=== PATIENT | female | born 1995 | race Caucasian/White ===

== ENCOUNTER 2017-03-24 09:05 | Emergency (ER) | payer OTHER ==
[~2017-03-24] VITALS: Ht 172.7 cm; Wt 63.5 kg
[2017-03-24] MEDS ORDERED: CYCL5TAB PO (10:29)
[2017-03-24] MEDS ORDERED: PRD20T PO (10:29)
--- NOTE | 2017-03-24 10:29 | ED Back Pain ---
General Chief Complaint: Back Problems Stated Complaint: BACK PAIN Nursing Triage Note: TO ED PER W/C REPORTS WAS SNEEZING WHEN LOW BACK PAIN STARTED, DID NOT TAKE ANY OTC PAIN MEDS BEFORE COMING TO ED. Nursing Sepsis Screen: No Definite Risk Source of Information: Patient Exam Limitations: No Limitations History of Present Illness Time Seen by Provider: 10:27 Initial Comments To ER with reports of left low back pain that radiates down the left leg. This began when sneezing this morning. Has a history of sciatica. No loss of bowel or bladder control, no saddle anesthesia. No fevers or chills. Location: Lumbar Spine Timing/Duration: 1-2 Days Severity: Moderate Method of Injury: Other (sneezing) Associated Symptoms: lower back pain Allergies and Home Medications Allergies Coded Allergies: No Known Drug Allergies (Unverified , 03/24/17) Home Medications No Active Prescriptions or Reported Meds Constitutional: see HPI, No chills, No fever EENTM: see HPI Respiratory: no symptoms reported Cardiovascular: no symptoms reported Genitourinary: no symptoms reported Musculoskeletal: see HPI, back pain Skin: no symptoms reported Psychiatric/Neurological: No Symptoms Reported Past Qznpywp-Dyidpx-Tyiyme Hx Patient Social History Alcohol Use: Denies Use Recreational Drug Use: No Smoking Status: Never a Smoker Recent Foreign Travel: No Contact w/Someone Who Travel: No Recent Infectious Disease Expo: No Recent Hopitalizations: No Seasonal Allergies Seasonal Allergies: No Surgeries HX Surgeries: No Respiratory Hx Respiratory Disorders: No Cardiovascular Hx Cardiac Disorders: No Neurological Hx Neurological Disorders: No Genitourinary Hx Genitourinary Disorders: No Gastrointestinal Hx Gastrointestinal Disorders: No Musculoskeletal Hx Musculoskeletal Disorders: No Endocrine Hx Endocrine Disorders: No HEENT HX ENT Disorders: No Cancer Hx Cancer: No Psychosocial Hx Psychiatric Problems: No Physical Exam Vital Signs Vital Sign - Last 12Hours 03/24/17 09:11 Temp 98.0 Pulse 69 Resp 18 B/P (MAP) 114/82 Pulse Ox 100 O2 Delivery Room Air Capillary Refill : Less Than 3 Seconds General Appearance: No Apparent Distress, WD/WN HEENT: PERRL/EOMI, TMs Normal Neck: Full Range of Motion, Normal Inspection Respiratory: No Accessory Muscle Use, No Respiratory Distress Gastrointestinal: Non Tender, Soft Extremity: Normal Capillary Refill, Normal Inspection Neurologic/Psychiatric: Alert, Oriented x3, No Motor/Sensory Deficits, Normal Mood/Affect Skin: Normal Color, Warm/Dry Progress/Results/Core Measures Results/Orders Vital Signs/I&O Vital Sign - Last 12Hours 03/24/17 09:11 Temp 98.0 Pulse 69 Resp 18 B/P (MAP) 114/82 Pulse Ox 100 O2 Delivery Room Air Blood Pressure Mean: 93 Departure Impression Impression: Primary Impression: Lumbar radiculopathy Disposition: HOME, SELF-CARE Condition: Stable Departure-Patient Inst. Decision time for Depature: 10:28 Referrals: [facility] (PCP/Family) Primary Care Physician Patient Instructions: Radiculopathy (DC) Add. Discharge Instructions: 1. Return to ER for any concerns 2. [facility] 3. All discharge instructions reviewed with patient and/or family. Voiced understanding. Scripts Cyclobenzaprine HCl (Cyclobenzaprine HCl) 5 Mg Tablet 5 MG PO TID Y for PAIN-MILD TO MODERATE, #20 TAB Prov: PRASHANT BULLOCK APRN 03/24/17 Prednisone (Prednisone) 20 Mg Tab 40 MG PO DAILY, #6 TAB Prov: PRASHANT BULLOCK APRN 03/24/17 PRASHANT BULLOCK APRN March 24, 2017 10:29
[2017-03-24] MEDS ORDERED: KETOROLAC 60 MG/2 ML VIAL IM ONE (10:30)
[2017-03-24] MEDS ORDERED: ORPHENADRINE 60 MG/2 ML (NORFLEX) AMP IM ONE (10:30)
[2017-03-24 10:46] VITALS: BP 114/82
== END 2017-03-24 10:46 | disposition home or self-care (01) ==
LOC: ER 09:09
DX: M54.16 Radiculopathy, lumbar region (principal)
CPT/HCPCS: 96372; 99281